=== PATIENT | female | born 1945 | race Caucasian/White ===

== ENCOUNTER → 2016-09-16 | Outpatient (CLI) | payer OTHER, BC ==
[~2016-09-16] MED LIST: ACET-1138 PO; ASPEC81 PO; CETI10TA84 PO; HYDR2.5L TOP; ISOS60TA25 PO; LAMO150T32 PO; LEVO125T4 PO; LORA-741 PO; METO25TA3 PO; NITRO QUIK SL; ONDA8TAB6 PO; OXYSR10 PO; PRAV20TA PO; RXC5 PO; SENNTAB23 PO; VITAMIN D PO; albuterol sulfate INH
[2016-09-16 18:20] LABS: TOTAL IRON BINDING CAPACITY 336 mcg/dl (250-450)
[2016-09-16 18:51] LABS: BASO % 0.3 %; BASO ABS # 0.03 K/uL (0-0.2); COMPLETE YES; EOS % 2.4 %; HEMATOCRIT 38.9 % (37-47); IG% 0.2 %; LYMPH % 24.2 %; LYMPH ABS # 2.26 K/uL (1.2-3.4); MEAN CELL VOLUME 90.9 fL (80-100); MEAN CORPUSCULAR HEMOGLOBIN 29.2 pg (25-34); MEAN CORPUSCULAR HGB CONC 32.1 g/dl (32-36); NEUT % 67.9 %; PLATELET COUNT 288 K/uL (130-400); RED BLOOD COUNT 4.28 M/uL (4.2-5.4); WHITE BLOOD COUNT 9.32 K/uL (4.8-10.8)
== END | disposition home or self-care (01) ==
LOC: C.LABMFLN 13:15
PROVIDERS: ATTEND Family Medicine
DX: D50.0 Iron deficiency anemia secondary to blood loss (chronic) (principal)

== ENCOUNTER → 2017-12-02 | Outpatient (CLI) | payer OTHER, BC ==
[~2017-12-02] MED LIST changes: -ASPEC81 PO; +ASPI-320 PO; +LAMO150T PO; -LAMO150T32 PO; -LEVO125T4 PO; +LEVO125T5 PO; -ONDA8TAB6 PO
[2017-12-02 18:25] LABS: ALBUMIN 3.7 gm/dl (3.4-5.0); BLOOD UREA NITROGEN 26 mg/dl (7-18); CALCIUM 9.7 mg/dl (8.5-10.1); CARBON DIOXIDE 29 mmol/L (21-32); CREATININE 1.65 mg/dl (0.60-1.20); GLUCOSE 96 mg/dl (70-99); PHOSPHORUS 3.1 mg/dl (2.5-4.9); POTASSIUM 4.8 mmol/L (3.5-5.1); SODIUM 142 mmol/L (136-145)
== END | disposition home or self-care (01) ==
LOC: C.LABMFLN 15:05
PROVIDERS: ATTEND Family Medicine
DX: E03.9 Hypothyroidism, unspecified (principal); N18.3 Chronic kidney disease, stage 3 (moderate)

== ENCOUNTER → 2018-03-05 | Outpatient (CLI) | payer OTHER, BC ==
[2018-03-05 18:20] LABS: ALBUMIN 3.6 gm/dl (3.4-5.0); BLOOD UREA NITROGEN 32 mg/dl (7-18); CALCIUM 9.7 mg/dl (8.5-10.1); CARBON DIOXIDE 29 mmol/L (21-32); CREATININE 1.79 mg/dl (0.60-1.20); GLUCOSE 98 mg/dl (70-99); PHOSPHORUS 3.1 mg/dl (2.5-4.9); POTASSIUM 4.9 mmol/L (3.5-5.1); SODIUM 142 mmol/L (136-145)
== END | disposition home or self-care (01) ==
LOC: C.LABMFLN 14:41
PROVIDERS: ATTEND Family Medicine
DX: N18.3 Chronic kidney disease, stage 3 (moderate) (principal); E03.9 Hypothyroidism, unspecified